=== PATIENT | female | born 1935 | race Caucasian/White ===

== ENCOUNTER 2018-05-12 15:50 | Inpatient (IN) | payer OTHER ==
[~2018-05-12] VITALS: Ht 147.3 cm; Wt 60.8 kg
[2018-05-12] MEDS ORDERED: HUMULIN N100 UNIT/2 (16:15)
[2018-05-12] MEDS ORDERED: SYNTHROID75 MCG (16:17)
[2018-05-12] MEDS ORDERED: COZAAR100 MG (16:17)
[2018-05-14] MEDS ORDERED: ULTRACET PO (09:05)
== END 2018-05-14 10:30 | disposition home or self-care (01) | DRG 841 ==
LOC: ER 15:50 → MEDI 19:23 → SEC-K 19:23 → MEDI 19:56
PROC: 0WBH3ZX Excision of Retroperitoneum, Percutaneous Approach, Diagnostic (ICD-10-PCS; principal; 2018-05-13)
DX: C82.06 Follicular lymphoma grade I, intrapelvic lymph nodes (principal); N13.39 Other hydronephrosis; I10 Essential (primary) hypertension; E03.8 Other specified hypothyroidism; E11.9 Type 2 diabetes mellitus without complications

== ENCOUNTER 2018-06-23 08:11 | Outpatient (CLI) | payer OTHER ==
[~2018-06-23 08:11] MED LIST: COZAAR100 MG; HUMULIN N100 UNIT/2; SYNTHROID75 MCG; ULTRACET PO
== END 2018-06-23 09:00 | disposition home or self-care (01) ==
LOC: NUCLEAR 08:11
DX: C18.9 Malignant neoplasm of colon, unspecified (principal)
CPT/HCPCS: 78816; A9552

== ENCOUNTER → 2018-12-03 | Outpatient (CLI) | payer OTHER | END | disposition home or self-care (01) | LOC: NUCLEAR 08:30 | DX: Z08 Encounter for follow-up examination after completed treatment for malignant neoplasm (principal); Z85.71 Personal history of Hodgkin lymphoma | CPT/HCPCS: 78816; A9552 ==

== ENCOUNTER → 2019-05-18 | Outpatient (CLI) | payer OTHER | END | disposition home or self-care (01) | LOC: NUCLEAR 07:00 | DX: C18.7 Malignant neoplasm of sigmoid colon (principal); Z08 Encounter for follow-up examination after completed treatment for malignant neoplasm | CPT/HCPCS: 78815; A9552 ==

== ENCOUNTER 2020-09-27 09:19 | Outpatient (CLI) | payer OTHER | END 2020-09-27 09:35 | disposition home or self-care (01) | LOC: NUCLEAR 09:19 | PROVIDERS: ATTEND Internal Medicine | DX: C18.7 Malignant neoplasm of sigmoid colon (principal); Z85.71 Personal history of Hodgkin lymphoma | CPT/HCPCS: 78816; A9552 ==

== ENCOUNTER → 2021-06-06 08:53 | Outpatient (CLI) | payer OTHER | END | disposition home or self-care (01) | LOC: NUCLEAR 08:53 | PROVIDERS: ATTEND Internal Medicine | DX: C82 Follicular lymphoma (principal); C81.98 Hodgkin lymphoma, unspecified, lymph nodes of multiple sites | CPT/HCPCS: 78815; A9552 ==

== ENCOUNTER 2021-10-22 08:25 | Outpatient (CLI) | payer OTHER | END 2021-10-22 08:26 | disposition home or self-care (01) | LOC: NUCLEAR 08:25 | PROVIDERS: ATTEND Internal Medicine | DX: C81.98 Hodgkin lymphoma, unspecified, lymph nodes of multiple sites (principal) | CPT/HCPCS: 78816; A9552 ==